=== PATIENT | male | born 1950 | race African-American/Black ===

== ENCOUNTER 2016-09-05 14:52 | Emergency (ER) | payer OTHER ==
[~2016-09-05] VITALS: Ht 185.4 cm; Wt 88.5 kg
[2016-09-05] MEDS ORDERED: NAPROSYN500 M1 PO (15:13)
[2016-09-05 15:54] VITALS: BP 166/95
== END 2016-09-05 15:54 | disposition home or self-care (01) ==
LOC: ER 14:52
DX: S16.1XXA Strain of muscle, fascia and tendon at neck level, initial encounter (principal); E11.9 Type 2 diabetes mellitus without complications; I10 Essential (primary) hypertension; Z98.890 Other specified postprocedural states; Z79.4 Long term (current) use of insulin; V49.60XA Unspecified car occupant injured in collision with unspecified motor vehicles in traffic accident, initial encounter; Y93.89 Activity, other specified; Y92.488 Other paved roadways as the place of occurrence of the external cause; Y99.8 Other external cause status